=== PATIENT | female | born 1965 | race African-American/Black ===

== ENCOUNTER 2016-05-07 12:28 | Inpatient (IN) | payer OTHER ==
[2016-05-07 13:54] VITALS: BMI 25.0
--- NOTE | 2016-05-07 14:31 | HP ---
CIWA Score - CIWA Score Nausea/Vomitin-No Nausea/No Vomiting Muscle Tremors: 3 Anxiety: 5 Agitation: 4-Moderately Restless Paroxysmal Sweats: 1-Minimal Palms Moist Orientation: 0-Oriented Tacttile Disturbances: 3-Moderate Itch/Numb/Burn Auditory Disturbances: 0-None Visual Disturbances: 0-None Headache: 0-None Present CIWA-Ar Total Score: 16 Admission ROS BHS - HPI Chief Complaint: DETOX TX FOR ALCOHOL DEPENDENCE Allergies/Adverse Reactions: Allergies Allergy/AdvReac Type Severity Reaction Status Date / Time No Known Allergies Allergy Verified 05/07/16 14:26 History of Present Illness: 51 Y/O AA/FEMALE WITH A HX OF ALCOHOL,COCIANE AND HEROIN DEPENDENCE ON MMTP SEEKING DETOX TX Exam Limitations: No Limitations - Ebola screening Have you traveled outside of the country in the last 21 days: No Have you had contact with anyone from an Ebola affected area: No Have you been sick,other than usual withdrawal symptoms: No - Review of Systems Constitutional: Chills, Loss of Appetite, Night Sweats EENT: reports: Blurred Vision (WEARS GLASSES), Dental Problems (MISSING UPPER TEETH) Respiratory: reports: No Symptoms reported Cardiac: reports: No Symptoms Reported GI: reports: Constipated, Poor Appetite, Poor Fluid Intake : reports: No Symptoms Reported Musculoskeletal: reports: Back Pain Integumentary: reports: No Symptoms Reported Neuro: reports: No Symptoms reported Endocrine: reports: No Symptoms Reported Hematology: reports: Anemia (NO CURRENT MED) Psychiatric: reports: Orientated x3, Anxious, Depressed (NO CURRENT MED) Other Systems: Reviewed and Negative Patient History - Patient Medical History Hx Anemia: Yes (NO CURRENT MED) Hx Asthma: No Hx Chronic Obstructive Pulmonary Disease (COPD): No Hx Cardiac Disorders: No Hx Hypertension: No Hx Hypercholesterolemia: No HX Cerebrovascular Accident: No Hx Seizures: No Hx Diabetes: No Hx Gastrointestinal Disorders: No Hx Genitourinary Disorders: Yes (HX UTI) Hx Sexually Transmitted Disorders: Yes (SYPHILIS AND GONORRHEA TX HX) Hx Renal Disease (ESRD): No Hx Thyroid Disease: No Hx Human Immunodeficiency Virus (HIV): Yes (HX HIV/AIDS; NO CURRENT MED; NONCOMPLIANT-"I WAS SELLING IT") Hx Hepatitis C: No Hx Depression: Yes (NO CURRENT MEDS) Hx Suicide Attempt: No (DENIES) Hx Bipolar Disorder: No Hx Schizophrenia: No - Patient Surgical History Past Surgical History: Yes Hx Section: Yes (X 2 IN 1988 AND 1990) Other Surgical History: TONSILLECTOMY AT 20 Y/O Anesthesia Reaction: No - PPD History Previous Implant?: Yes Documented Results: Negative w/o proof Implanted On Prior [facility] Admission?: No PPD to be Administered?: Yes - Reproductive History Patient is a Female of Child Bearing Age (11 -55 yrs old): Yes Last Menstrual Period: 04/15/16 Patient : No - Smoking Cessation Smoking history: Current every day smoker Have you smoked in the past 12 months: Yes Aproximately how many cigarettes per day: 20 Hx Chewing Tobacco Use: No Initiated information on smoking cessation: Yes 'Breaking Loose' booklet given: 05/07/16 - Substance & Tx. History Hx Alcohol Use: Yes (VODKA/BEER) Hx Substance Use: Yes (COCAINE/HEROIN) Substance Use Type: Alcohol, Cocaine, Heroin Hx Substance Use Treatment: Yes ([facility] MMTP 100 MG PO DAILY) - Substances Abused Alcohol Route: Oral Frequency: Daily Amount used: 1 CASE/ FIFTH Age of first use: 10 Date of Last Use: 05/07/16 Cocaine Route: Injection (AND SNORT) Frequency: Daily Amount used: $100 Age of first use: 11 Date of Last Use: 05/05/16 HEROIN Route: Injection Frequency: Daily Amount used: $100 Age of first use: 13 Date of Last Use: 05/07/16 Family Disease History - Family Disease History Family History: Denies Admission Physical Exam S - Vital Signs Vital Signs: Vital Signs - 24 hr 05/07/16 13:52 Temperature 97.9 F Pulse Rate 81 Respiratory 20 Rate Blood Pressure 133/88 - Physical General Appearance: Yes: Moderate Distress, Irritable, Anxious, Other (RESTLESS) HEENTM: Yes: EOMI, Normocephalic, LISA, Pharynx Normal, Photophobia Respiratory: Yes: Chest Non-Tender, Lungs Clear, Normal Breath Sounds Neck: Yes: Supple, Trachea in good position Breast: Yes: Breast Exam Deferred Cardiology: Yes: Regular Rhythm, Regular Rate, S1, S2 Abdominal: Yes: Normal Bowel Sounds, Non Tender, Soft Genitourinary: Yes: Other (N/C) Back: Yes: Within Normal Limits Musculoskeletal: Yes: full range of Motion, Gait Steady Extremities: Yes: Normal Range of Motion, Non-Tender Neurological: Yes: bariatric program coordinator II-XII NML intact, Fully Oriented, Alert Integumentary: Yes: Dry, Warm Lymphatic: Yes: Within Normal Limits - Diagnostic (1) Alcohol dependence with uncomplicated withdrawal Current Visit: Yes Status: Acute (2) Cocaine dependence, uncomplicated Current Visit: Yes Status: Acute (3) Methadone maintenance therapy patient Current Visit: Yes Status: Acute (4) Hx of AIDS Current Visit: Yes Status: Chronic (5) History of anemia Current Visit: Yes Status: Acute Cleared for Admission [facility] - Detox or Rehab [facility] Level of Care: Medically Managed Detox Regimen/Protocol: Librium [facility] Breath Alcohol Content Breath Alcohol Content: 0 Urine Pregancy Test - Result Urine Test Results: Negative- NO Line Present Urine Drug Screen - Results Drug Screen Negative: No Urine Drug Screen Results: MAYKEL-Cocaine, OPI-Opiates, MTD-Methadone
[2016-05-07] MEDS ORDERED: MAG HYDROX/AL HYDROX/SIMETH 30 ML UNIT-DOSE CUP PO PRN (15:16)
[2016-05-07] MEDS ORDERED: guaiFENesin/D-METHORPHAN HB 10 ML UNIT-DOSE CUPS PO PRN (15:16)
[2016-05-07] MEDS ORDERED: MAGNESIUM CITRATE 300 ML BOTTLE PO PRN (15:16)
[2016-05-07] MEDS ORDERED: P-EPHED 60MG/TRIPROLIDI 2.5MG TABLET PO PRN (15:16)
[2016-05-07] MEDS ORDERED: hydrOXYzine PAMOATE 25 MG CAPSULE (FP) PO PRN (15:16)
[2016-05-07] MEDS ORDERED: NICOTINE POLACRILEX 4 MG GUM BUC PRN (15:16)
[2016-05-07] MEDS ORDERED: ACETAMINOPHEN 325 MG TABLET (FP) PO PRN (15:16)
[2016-05-07] MEDS ORDERED: LOPERAMIDE HCL 2 MG CAPSULE PO PRN (15:16)
[2016-05-07] MEDS ORDERED: MAGNESIUM HYDROX 2400MG/30ML ORAL SUSPENSION 30 ML CUP PO PRN (15:16)
[2016-05-07] MEDS ORDERED: IBUPROFEN 400 MG TABLET (FP) PO PRN (15:16)
[2016-05-07] MEDS ORDERED: chlordiazePOXIDE HCL 25 MG CAPSULE PO PRN (15:16)
[2016-05-07] MEDS ORDERED: MENTHOL/PHENOL 1 EACH UD MM PRN (15:16)
[2016-05-07] MEDS ORDERED: chlordiazePOXIDE HCL 25 MG CAPSULE PO ONE (17:30)
[2016-05-07] MEDS: chlordiazePOXIDE HCL 25 MG CAPSULE PO SCH ×2 (17:40→22:41)
[2016-05-07] MEDS: NICOTINE 21 MG/24 HOURS TOPICAL PATCH TD SCH (17:43)
[2016-05-07] MEDS ORDERED: diphenhydrAMINE HCL 50 MG CAPSULE PO PRN (22:00)
[2016-05-07] MEDS: THIAMINE HCL 100 MG TABLET (FP) PO SCH (22:41)
[2016-05-07 23:16] LABS: PH,URINE 5.5 (5.0-8.0); URINE APPEARANCE CLEAR; URINE BILIRUBIN NEGATIVE (NEGATIVE); URINE COLOR YELLOW; URINE GLUCOSE (UA) NEGATIVE (NEGATIVE); URINE KETONE NEGATIVE (NEGATIVE); URINE LEUK ESTERASE NEGATIVE (NEGATIVE); URINE NITRITE NEGATIVE (NEGATIVE); URINE PROTEIN TRACE (NEGATIVE); URINE UROBILINOGEN 0.2 E.U/dl E.U./dl (0.2-1.0)
[2016-05-07 23:23] LABS: URINE BLOOD 3+ (NEGATIVE)
[2016-05-07 23:35] LABS: URINE BACTERIA RARE /hpf (NONE SEEN); URINE MUCUS RARE; URINE RBC 244 /hpf (0-3); URINE WBC 26 /hpf (3-5)
[2016-05-08] MEDS: chlordiazePOXIDE HCL 25 MG CAPSULE PO SCH ×4 (06:14→22:48)
[2016-05-08] MEDS ORDERED: METHADONE HCL 10 MG TABLET PO ONE (08:55)
[2016-05-08] MEDS ORDERED: METHADONE 80 MG, METHADONE 20 MG PO ONE (09:15)
[2016-05-08] MEDS ORDERED: METHADONE HCL 40 MG DISPERSABLE TABLET ONE (09:22)
[2016-05-08] MEDS ORDERED: METHADONE HCL 10 MG TABLET ONE (09:22)
--- NOTE | 2016-05-08 09:37 | CONSULT ---
[facility] Psychiatric Consult - Data Date of interview: 05/08/16 Admission source: [facility] Identifying data: This is 51 years old male with no psychiatric hospitalization history intoxicated with Heroin, Cocaine, Alcohol and Nicotine Substance Abuse History: - Smoking Cessation. Smoking history: Current every day smoker. Have you smoked in the past 12 months: Yes. Aproximately how many cigarettes per day: 20. Hx Chewing Tobacco Use: No. Initiated information on smoking cessation: Yes. 'Breaking Loose' booklet given: 05/07/16. - Substance & Tx. History. Hx Alcohol Use: Yes (VODKA/BEER). Hx Substance Use: Yes ( COCAINE/HEROIN). Substance Use Type: Alcohol, Cocaine, Heroin. Hx Substance Use Treatment: Yes ([facility] MMTP 100 MG PO DAILY). - Substances Abused. Alcohol. Route: Oral. Frequency: Daily. Amount used: 1 CASE/ FIFTH. Age of first use: 10. Date of Last Use: 05/07/16. Cocaine. Route: Injection (AND SNORT). Frequency: Daily. Amount used: $100. Age of first use : 11. Date of Last Use: 05/05/16. HEROIN. Route: Injection. Frequency: Daily. Amount used: $100. Age of first use: 13. Date of Last Use: 05/07/16 Medical History: Anemia, AIDS, MMTP -100mg /day Psychiatric History: Denies Physical/Sexual Abuse/Trauma History: Denies Additional Comment: Observation. Detox Unit Care Protocol. Urine Drug Screen Results: MAYKEL-Cocaine, OPI-Opiates, MTD-Methadone Mental Status Exam - Mental Status Exam Alert and Oriented to: Person Cognitive Function: Fair Patient Appearance: Unkempt Mood: Sad Affect: Flat Patient Behavior: Sedated Speech Pattern: Delayed Voice Loudness: Mildly Soft/Quiet Thought Process: Circumstantial Thought Disorder: Being Controlled Hallucinations: Denies Suicidal Ideation: Denies Homicidal Ideation: Denies Insight/Judgement: Fair Sleep: Difficulty falling asleep Appetite: Fair Muscle strength/Tone: Normal Gait/Station: Shuffling Additional Comments: Observation. Detox Unit Care Protocol Psychiatric Findings - Problem List ([place] 1, 2,3) (1) Alcohol dependence with uncomplicated withdrawal Current Visit: Yes Status: Acute (2) Cocaine dependence, uncomplicated Current Visit: Yes Status: Acute (3) Methadone maintenance therapy patient Current Visit: Yes Status: Acute (4) Nicotine dependence Current Visit: Yes Status: Acute (5) Drug-induced mood disorder Current Visit: Yes Status: Suspected - Initial Treatment Plan Initial Treatment Plan: Detox Unit Care Protocol. Observation
[2016-05-08 10:04] LABS: MCH 25.9 pg (25.7-33.7); MEAN CELL VOLUME 80.7 fl (80-96); MEAN PLT VOLUME 9.1 fl (7.5-11.1); PLATELET COUNT 218 K/MM3 (134-434); RDW 15.5 % (11.6-15.6); WHITE BLOOD COUNT 3.8 K/mm3 (4.0-10.0)
[2016-05-08 10:24] LABS: ALBUMIN 3.5 g/dl (3.4-5.0); BILIRUBIN,TOTAL 0.4 mg/dL (0.2-1.0); CALCIUM 8.8 mg/dL (8.5-10.1); CREATININE 1.1 mg/dL (0.55-1.02); TOT PROT 7.6 g/dl (6.4-8.2)
--- NOTE | 2016-05-08 10:26 | EKG ---
Test Reason : Blood Pressure : / mmHG Vent. Rate : 068 BPM Atrial Rate : 068 BPM P-R Int : 148 ms QRS Dur : 084 ms QT Int : 404 ms P-R-T Axes : 063 046 024 degrees QTc Int : 429 ms NORMAL SINUS RHYTHM NORMAL ECG NO PREVIOUS ECGS AVAILABLE Confirmed by ADILIA DHILLON, KENYA ([id number]) on 05/08/2016 10:25:58 AM Referred By: Alejandro Brian Confirmed By:KENYA PAT MD
[2016-05-08] MEDS: PRENATAL VITAMINS W/ FOLIC ACID TABLET (FP) PO SCH (10:32)
[2016-05-08] MEDS: NICOTINE 21 MG/24 HOURS TOPICAL PATCH TD SCH (10:35)
[2016-05-08 11:08] LABS: SICKLE CELL SCREEN NEGATIVE (NEGATIVE)
--- NOTE | 2016-05-08 11:35 | PN ---
S CIWA - CIWA Score Nausea/Vomitin Muscle Tremors: 2 Anxiety: 2 Agitation: 2 Paroxysmal Sweats: 2 Orientation: 0-Oriented Tacttile Disturbances: 2-Mild Itch/Numbness/Burn Auditory Disturbances: 0-None Visual Disturbances: 0-None Headache: 0-None Present CIWA-Ar Total Score: 12 S Progress Note (SOAP) Subjective: interrupted sleep, sweats Objective: 05/08/16 11:33 Vital Signs Temperature 98.2 F 05/08/16 10:23 Pulse Rate 81 05/08/16 10:23 Respiratory Rate 16 05/08/16 10:23 Blood Pressure 107/68 05/08/16 10:23 O2 Sat by Pulse Oximetry (%) Laboratory Tests 05/07/16 05/08/16 05/08/16 23:00 06:00 06:00 WBC 3.8 L RBC 4.20 Hgb 10.9 Hct 33.9 MCV 80.7 MCHC 32.0 RDW 15.5 Plt Count 218 MPV 9.1 Sickle Cell Screen Negative Sodium 141 Potassium 3.9 Chloride 106 Carbon Dioxide 28 Anion Gap 7 L BUN 17 Creatinine 1.1 H Creat Clearance w eGFR 51.96 Random Glucose 80 Calcium 8.8 Total Bilirubin 0.4 AST 19 ALT 18 Alkaline Phosphatase 50 Total Protein 7.6 Albumin 3.5 Urine Color Yellow Urine Appearance Clear Urine pH 5.5 Ur Specific [place] >= 1.030 Urine Protein Trace H Urine Glucose (UA) Negative Urine Ketones Negative Urine Blood 3+ H Urine Nitrite Negative Urine Bilirubin Negative Urine Urobilinogen 0.2 e.u/dl Ur Leukocyte Esterase Negative Urine RBC 244 Urine WBC 26 Ur Epithelial Cells Rare Urine Bacteria Rare Urine Mucus Rare RPR Titer 05/08/16 06:00 WBC RBC Hgb Hct MCV MCHC RDW Plt Count MPV Sickle Cell Screen Sodium Potassium Chloride Carbon Dioxide Anion Gap BUN Creatinine Creat Clearance w eGFR Random Glucose Calcium Total Bilirubin AST ALT Alkaline Phosphatase Total Protein Albumin Urine Color Urine Appearance Urine pH Ur Specific [place] Urine Protein Urine Glucose (UA) Urine Ketones Urine Blood Urine Nitrite Urine Bilirubin Urine Urobilinogen Ur Leukocyte Esterase Urine RBC Urine WBC Ur Epithelial Cells Urine Bacteria Urine Mucus RPR Titer Nonreactive pt aox3 in nad ambulating 05/08/16 11:34 Assessment: 05/08/16 11:34 withdrawl sx's 05/08/16 11:35 abn u/a 2nd to menses Plan: cont. detox increase fluids
[2016-05-08] MEDS: THIAMINE HCL 100 MG TABLET (FP) PO SCH (22:48)
[2016-05-09] MEDS ORDERED: METHADONE HCL 10 MG TABLET ONE (05:20)
[2016-05-09] MEDS ORDERED: METHADONE HCL 40 MG DISPERSABLE TABLET ONE (05:20)
[2016-05-09] MEDS: chlordiazePOXIDE HCL 25 MG CAPSULE PO SCH ×2 (05:45→10:36)
[2016-05-09] MEDS ORDERED: METHADONE HCL 10 MG TABLET PO SCH (06:00)
[2016-05-09] MEDS: METHADONE 80 MG, METHADONE 20 MG PO SCH (06:16)
--- NOTE | 2016-05-09 09:57 | PN ---
[facility] CIWA - CIWA Score Nausea/Vomitin-No Nausea/No Vomiting Muscle Tremors: 3 Anxiety: 3 Agitation: 3 Paroxysmal Sweats: 3 Orientation: 0-Oriented Tacttile Disturbances: 0-None Auditory Disturbances: 0-None Visual Disturbances: 0-None Headache: 0-None Present CIWA-Ar Total Score: 12 BHS Progress Note (SOAP) Subjective: interrupted sleep increase fluids sweats Objective: 05/09/16 09:56 Vital Signs Temperature 98.9 F 05/09/16 06:01 Pulse Rate 84 05/09/16 06:01 Respiratory Rate 18 05/09/16 06:01 Blood Pressure 119/65 05/09/16 06:01 O2 Sat by Pulse Oximetry (%) Laboratory Tests 05/07/16 05/08/16 05/08/16 23:00 06:00 06:00 WBC 3.8 L RBC 4.20 Hgb 10.9 Hct 33.9 MCV 80.7 MCHC 32.0 RDW 15.5 Plt Count 218 MPV 9.1 Sickle Cell Screen Negative Sodium 141 Potassium 3.9 Chloride 106 Carbon Dioxide 28 Anion Gap 7 L BUN 17 Creatinine 1.1 H Creat Clearance w eGFR 51.96 Random Glucose 80 Calcium 8.8 Total Bilirubin 0.4 AST 19 ALT 18 Alkaline Phosphatase 50 Total Protein 7.6 Albumin 3.5 Urine Color Yellow Urine Appearance Clear Urine pH 5.5 Ur Specific [place] >= 1.030 Urine Protein Trace H Urine Glucose (UA) Negative Urine Ketones Negative Urine Blood 3+ H Urine Nitrite Negative Urine Bilirubin Negative Urine Urobilinogen 0.2 e.u/dl Ur Leukocyte Esterase Negative Urine RBC 244 Urine WBC 26 Ur Epithelial Cells Rare Urine Bacteria Rare Urine Mucus Rare RPR Titer 05/08/16 06:00 WBC RBC Hgb Hct MCV MCHC RDW Plt Count MPV Sickle Cell Screen Sodium Potassium Chloride Carbon Dioxide Anion Gap BUN Creatinine Creat Clearance w eGFR Random Glucose Calcium Total Bilirubin AST ALT Alkaline Phosphatase Total Protein Albumin Urine Color Urine Appearance Urine pH Ur Specific [place] Urine Protein Urine Glucose (UA) Urine Ketones Urine Blood Urine Nitrite Urine Bilirubin Urine Urobilinogen Ur Leukocyte Esterase Urine RBC Urine WBC Ur Epithelial Cells Urine Bacteria Urine Mucus RPR Titer Nonreactive awake/alert ambulating no acute distress Assessment: 05/09/16 09:57 withdrawal sx Plan: continue detox increase fluids
[2016-05-09] MEDS: PRENATAL VITAMINS W/ FOLIC ACID TABLET (FP) PO SCH (10:36)
[2016-05-09] MEDS: NICOTINE 21 MG/24 HOURS TOPICAL PATCH TD SCH (10:37)
[2016-05-09] MEDS ORDERED: CYCLOBENZAPRINE HCL 10 MG TABLET (FP) PO ONE (13:08)
[2016-05-09] MEDS: chlordiazePOXIDE 5 MG CAPSULE PO SCH ×2 (18:06→22:34)
--- NOTE | 2016-05-09 21:39 | PN ---
S Progress Note Note: temp 100.4 recommend tylenal 650 mg po now repeat in two hours around 1100pm increase oral fluid continue detox
[2016-05-09] MEDS: THIAMINE HCL 100 MG TABLET (FP) PO SCH (22:34)
[2016-05-10] MEDS ORDERED: METHADONE HCL 10 MG TABLET ONE (05:00)
[2016-05-10] MEDS ORDERED: METHADONE HCL 40 MG DISPERSABLE TABLET ONE (05:00)
[2016-05-10] MEDS: METHADONE 80 MG, METHADONE 20 MG PO SCH (06:11)
[2016-05-10] MEDS: chlordiazePOXIDE 5 MG CAPSULE PO SCH ×2 (06:11→10:26)
--- NOTE | 2016-05-10 10:11 | PN ---
BHS Progress Note (SOAP) Subjective: shaky, anxious, poor sleep Objective: 05/10/16 10:10 Vital Signs - 24 hr 05/09/16 05/09/16 05/09/16 10:38 14:36 18:01 Temperature 99.3 F 97.1 F L 100.4 F H Pulse Rate 91 H 95 H 77 Respiratory 20 18 18 Rate Blood Pressure 113/66 125/74 94/68 05/09/16 05/09/16 05/10/16 22:43 23:28 03:30 Temperature 100.4 F H 99.1 F Pulse Rate 80 Respiratory 18 18 Rate Blood Pressure 112/68 05/10/16 06:39 Temperature 97 F L Pulse Rate 81 Respiratory 18 Rate Blood Pressure 106/66 Laboratory Tests 05/07/16 05/08/16 05/08/16 23:00 06:00 06:00 WBC 3.8 L RBC 4.20 Hgb 10.9 Hct 33.9 MCV 80.7 MCHC 32.0 RDW 15.5 Plt Count 218 MPV 9.1 Sickle Cell Screen Negative Sodium 141 Potassium 3.9 Chloride 106 Carbon Dioxide 28 Anion Gap 7 L BUN 17 Creatinine 1.1 H Creat Clearance w eGFR 51.96 Random Glucose 80 Calcium 8.8 Total Bilirubin 0.4 AST 19 ALT 18 Alkaline Phosphatase 50 Total Protein 7.6 Albumin 3.5 Urine Color Yellow Urine Appearance Clear Urine pH 5.5 Ur Specific [place] >= 1.030 Urine Protein Trace H Urine Glucose (UA) Negative Urine Ketones Negative Urine Blood 3+ H Urine Nitrite Negative Urine Bilirubin Negative Urine Urobilinogen 0.2 e.u/dl Ur Leukocyte Esterase Negative Urine RBC 244 Urine WBC 26 Ur Epithelial Cells Rare Urine Bacteria Rare Urine Mucus Rare RPR Titer 05/08/16 06:00 WBC RBC Hgb Hct MCV MCHC RDW Plt Count MPV Sickle Cell Screen Sodium Potassium Chloride Carbon Dioxide Anion Gap BUN Creatinine Creat Clearance w eGFR Random Glucose Calcium Total Bilirubin AST ALT Alkaline Phosphatase Total Protein Albumin Urine Color Urine Appearance Urine pH Ur Specific [place] Urine Protein Urine Glucose (UA) Urine Ketones Urine Blood Urine Nitrite Urine Bilirubin Urine Urobilinogen Ur Leukocyte Esterase Urine RBC Urine WBC Ur Epithelial Cells Urine Bacteria Urine Mucus RPR Titer Nonreactive Assessment: 05/10/16 10:10 ongoing withdrawal Plan: continue detox protocol
[2016-05-10] MEDS: PRENATAL VITAMINS W/ FOLIC ACID TABLET (FP) PO SCH (10:26)
[2016-05-10] MEDS: NICOTINE 21 MG/24 HOURS TOPICAL PATCH TD SCH (10:26)
[2016-05-10] MEDS: chlordiazePOXIDE HCL 10 MG CAPSULE PO SCH ×2 (18:25→23:04)
[2016-05-10 21:59] VITALS: TEMP 99.7
[2016-05-10] MEDS: THIAMINE HCL 100 MG TABLET (FP) PO SCH (23:04)
[2016-05-11] MEDS ORDERED: METHADONE HCL 10 MG TABLET ONE (04:42)
[2016-05-11] MEDS ORDERED: METHADONE HCL 40 MG DISPERSABLE TABLET ONE (04:42)
[2016-05-11] MEDS: chlordiazePOXIDE HCL 10 MG CAPSULE PO SCH (05:26)
[2016-05-11] MEDS: METHADONE 80 MG, METHADONE 20 MG PO SCH (05:26)
[2016-05-11 06:51] VITALS: BP 132/65; PULSE 86
--- NOTE | 2016-05-11 08:45 | PN ---
S Progress Note (SOAP) Subjective: ALERT,NO COMPLAINT Objective: 05/11/16 08:43 Vital Signs Temperature 99.7 F H 05/11/16 06:00 Pulse Rate 86 05/11/16 06:00 Respiratory Rate 18 05/11/16 06:00 Blood Pressure 132/65 05/11/16 06:00 O2 Sat by Pulse Oximetry (%) Assessment: 05/11/16 08:44 DETOX COMPLETE,NO WITHDRAWAL SYMPTOM Plan: DISCHARGE TOAD,FOLLOW UP WITH AFTER CARE ARRANGEMENT
--- NOTE | 2016-05-11 08:50 | DS ---
[facility] Detox Discharge Summary Admission Date: 05/07/16 Discharge Date: 05/11/16 - History Present History: Alcohol Dependence, Cocaine Dependence, Opioid Dependence, MMTP Pertinent Past History: FOLLOW UP WITH AFTER CARE PROGRAM ARRANGEMENT AND PMD FOR MEDICAL PROBLEM - Physical Exam Results Vital Signs: Vital Signs Temperature 99.7 F H 05/11/16 06:00 Pulse Rate 86 05/11/16 06:00 Respiratory Rate 18 05/11/16 06:00 Blood Pressure 132/65 05/11/16 06:00 O2 Sat by Pulse Oximetry (%) Pertinent Admission Physical Exam Findings: WITHDRAWAL SYMPTOM - Treatment Hospital Course: Detox Protocol Followed, Detoxed Safely, Responded well, Discharged Condition Good, Rehab Referral Accepted Patient has Accepted a Rehab Referral to: [facility] - Medication Discharge Medications: Ambulatory Orders Emtricitab/Rilpivirine/Tenofov [Complera -] 1 each PO DAILY 05/07/16 Sulfamethoxazole/Trimethoprim [Bactrim Ds -] 1 tab PO DAILY 05/07/16 - Diagnosis (1) Alcohol dependence with uncomplicated withdrawal Current Visit: Yes Status: Acute (2) Cocaine dependence, uncomplicated Current Visit: Yes Status: Acute (3) History of anemia Current Visit: Yes Status: Acute (4) Methadone maintenance therapy patient Current Visit: Yes Status: Acute (5) Nicotine dependence Current Visit: Yes Status: Acute (6) Hx of AIDS Current Visit: Yes Status: Chronic (7) Drug-induced mood disorder Current Visit: Yes Status: Suspected - AMA Did Patient Leave Against Medical Advice: No
== END 2016-05-11 11:09 | disposition home or self-care (01) | DRG 773 ==
LOC: YASAS 12:28 → Y6N 16:54
PROVIDERS: ADMIT Internal Medicine Addiction Medicine; ATTEND Internal Medicine Addiction Medicine
PROC: HZ2ZZZZ Detoxification Services for Substance Abuse Treatment (ICD-10-PCS; principal; 2016-05-07)
DX: F10.230 Alcohol dependence with withdrawal, uncomplicated (principal); F11.20 Opioid dependence, uncomplicated; F14.20 Cocaine dependence, uncomplicated; F17.210 Nicotine dependence, cigarettes, uncomplicated; F19.24 Other psychoactive substance dependence with psychoactive substance-induced mood disorder; B20 Human immunodeficiency virus [HIV] disease; R50.9 Fever, unspecified; R82.90 Unspecified abnormal findings in urine; Z86.2 Personal history of diseases of the blood and blood-forming organs and certain disorders involving the immune mechanism; Z87.42 Personal history of other diseases of the female genital tract; Z87.440 Personal history of urinary (tract) infections; Z91.14 Patient's other noncompliance with medication regimen
CPT/HCPCS: 36415; 80053; 81003; 81015; 85027; 85660; 86593; 93005; 93010